=== PATIENT | female | born 1945 | race Caucasian/White ===

== ENCOUNTER 2018-03-30 14:18 | Emergency (ER) | payer MEDICARE, OTHER ==
[~2018-03-30] VITALS: Ht 162.6 cm; Wt 83.6 kg
--- NOTE | 2018-03-30 14:45 | NUR ---
Assumedc are of patient. C/O constipation and urinary retention. Patient reports last BM yesterday, but unable to go today. Denies ABD pain. Patient reports voiding around 1400, but did not feel she was able to void completely. Will continue to monitor.
--- NOTE | 2018-03-30 15:04 | NUR ---
Ambulated with a steady gait to the restroom.
--- NOTE | 2018-03-30 15:20 | NUR ---
RN checked on patient in bathroom. Shes states she is ok.
--- NOTE | 2018-03-30 15:41 | NUR ---
RN checked on patient in bathroom. She states she had small BM, but wants more time to relieve herself completely.
--- NOTE | 2018-03-30 16:28 | NUR ---
Patient to xray.
[2018-03-30] MEDS ORDERED: MAGNESIUM CITRATE 300ML ORAL SOL ONE (16:51)
[2018-03-30 16:55] VITALS: BP 132/84
[2018-03-30] MEDS ORDERED: MAGNESIUM CITRATE 300ML ORAL SOL PO ONE (17:00)
--- NOTE | 2018-03-30 17:08 | NUR ---
Patient/Caregiver given discharge instructions and they have confirmed that they understand the instructions. Patient ambulatory with steady gait.
== END 2018-03-30 17:10 | disposition home or self-care (01) ==
LOC: ED 16:15
DX: K59.00 Constipation, unspecified (principal); R10.84 Generalized abdominal pain; R11.0 Nausea
CPT/HCPCS: 74021; 99283